=== PATIENT | male | born 1975 | race Caucasian/White ===

== ENCOUNTER 2017-07-14 06:29 | Emergency (ER) | payer OTHER ==
[~2017-07-14] VITALS: Ht 175.3 cm; Wt 97.1 kg
[2017-07-14 06:43] VITALS: BP 141/86
== END 2017-07-14 07:44 | disposition home or self-care (01) ==
LOC: ED 06:29
DX: J01.90 Acute sinusitis, unspecified (principal); I10 Essential (primary) hypertension; E11.9 Type 2 diabetes mellitus without complications; Z79.84 Long term (current) use of oral hypoglycemic drugs
CPT/HCPCS: Q0162